=== PATIENT | female | born 1995 | race American Indian/Alaskan Native ===

== ENCOUNTER 2022-05-07 14:10 | Emergency (ER) | payer OTHER ==
[2022-05-07 15:10] VITALS: BP 146/81
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
== END 2022-05-07 17:00 | disposition home or self-care (01) ==
LOC: ED 14:10
DX: M54.50 Low back pain, unspecified (principal); V89.2XXA Person injured in unspecified motor-vehicle accident, traffic, initial encounter; Y93.89 Activity, other specified; Y92.89 Other specified places as the place of occurrence of the external cause; Y99.8 Other external cause status
CPT/HCPCS: 99282